=== PATIENT | male | born 1955 | race African-American/Black ===

== ENCOUNTER 2016-06-24 21:09 | Emergency (ER) | payer OTHER ==
[~2016-06-24] VITALS: Ht 188 cm; Wt 99.8 kg
[~2016-06-24 21:09] MED LIST: BENADRYL25 MG ORAL; HYDROCODON-ACE1 EA13; LISINOPRIL20 MG PO; METOPROLOL TART25 MG PO; MORPHINE SULFAT15 MG PO; NORCO 5-325 TA1 EAC1 ORAL; ONDANSETRON ODT4 MG ORAL; PREDNISONE20 MG ORAL; PREVACID30 MG ORAL; ZANTAC150 MG ORAL
[2016-06-24] MEDS ORDERED: Naloxone 1mg/ml 2ml IVP ONE (21:15)
[2016-06-24 21:58] LABS: ABG ALLEN TEST POSITIVE; ABG BASE EXCESS -7.8; ABG PCO2 31.1 mmHg (35.0-45.0)
[2016-06-24 22:01] LABS: BASOPHILS % (AUTO) 0.4 % (0.0-2.0); EOSINOPHILS % (AUTO) 0.2 % (0.0-3.0); LYMPHOCYTES % (AUTO) 15.1 % (20.0-45.0); MEAN CORPUSCULAR HEMOGLOBIN 33.4 PG (27.0-31.0); MEAN CORPUSCULAR HGB CONC 32.9 G/DL (32.0-36.0); MEAN CORPUSCULAR VOLUME 102 FL (80-99); MEAN PLATELET VOLUME 9.5 FL (6.5-10.1); MONOCYTES % (AUTO) 2.8 % (1.0-10.0); NEUTROPHILS % (AUTO) 81.5 % (45.0-75.0); PLATELET COUNT 155 K/UL (150-450); RED BLOOD COUNT 4.65 M/UL (4.70-6.10); RED CELL DISTRIBUTION WIDTH 11.8 % (11.6-14.8); WHITE BLOOD COUNT 10.4 K/UL (4.8-10.8)
[2016-06-24] MEDS ORDERED: Thiamine HCl 100 MG, Folic Acid 1 MG, Magnesium Sulfate 2,000 MG, Multivitamin - 12 Inj... IV SCH ×5 (22:30)
[2016-06-24] MEDS ORDERED: Morphine Sulfate 2mg/ml Inj IVP PRN (22:30)
[2016-06-24] MEDS ORDERED: chlordiazePOXIDE 25mg Cap ORAL PRN (22:30)
[2016-06-24] MEDS ORDERED: LORazepam Inj 2mg/ml 1ml IV PRN (22:30)
[2016-06-24] MEDS ORDERED: Miralax 17gm pkt ORAL PRN (22:30)
[2016-06-24] MEDS ORDERED: Zolpidem 5mg tab ORAL PRN (22:30)
[2016-06-24] MEDS ORDERED: Mylanta II UD 30ml ORAL PRN (22:30)
[2016-06-24 22:31] VITALS: BP 102/61
[2016-06-24 22:32] LABS: TROPONIN I < 0.30 ng/mL (<=0.30)
[2016-06-24 22:33] LABS: ACETAMINOPHEN < 10 ug/mL (10-30); ALANINE AMINOTRANSFERASE 74 U/L (3-41); ALBUMIN/GLOBULIN RATIO 1.4 (1.0-2.7); ALCOHOL 216 mg/dL; ANION GAP 23 (5-15); ASPARTATE AMINO TRANSFERASE 111 U/L (5-40); CALCIUM 9.1 mg/dL (8.6-10.2); CARBON DIOXIDE 20 mEQ/L (20-30); CHLORIDE 89 mEQ/L (98-107); CREATININE 2.2 mg/dL (0.7-1.2); GLOMERULAR FILTRATION RATE 37.2 mL/min (>60); HEMOLYSIS 36; POTASSIUM 3.2 mEQ/L (3.4-4.9); SODIUM 132 mEQ/L (135-145); TOTAL PROTEIN 7.1 g/dL (6.6-8.7)
[2016-06-24 22:34] LABS: AMMONIA 19 umol/L (16-60)
[2016-06-24 22:44] LABS: REFLEX LACTIC ACID YES OR NO YES
[2016-06-24 22:45] LABS: KETONES,URINE NEGATIVE (NEGATIVE); LEUKOCYTE ESTERASE ,URINE 1+ (NEGATIVE); NITRITE,URINE NEGATIVE (NEGATIVE); PH,URINE 5 (4.5-8.0); PROTEIN,URINE 3+ (NEGATIVE); UROBILINOGEN,URINE 4 MG/DL (0.0-1.0)
[2016-06-24 23:03] LABS: APPEARANCE,URINE CLEAR
[2016-06-24 23:04] LABS: BACTERIA,URINE FEW /HPF; RBC,URINE 0-2 /HPF (0 - 0); WBC,URINE 0-2 /HPF (0 - 0)
[2016-06-24 23:05] LABS: FINE GRANULAR CASTS,URINE 0-2 /LPF; HYALINE CASTS, URINE 0-2 /LPF
[2016-06-24 23:30] VITALS: BP 113/70
[2016-06-25 01:13] VITALS: BP 113/69
[2016-06-25 03:29] VITALS: BP 141/70
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
[2016-06-25 04:30] VITALS: BP 127/71
[2016-06-25 04:40] VITALS: BP 127/71
[2016-06-25] MEDS ORDERED: Metoprolol 25mg tab ORAL SCH (09:00)
[2016-06-25] MEDS ORDERED: Heparin 5000 units/ml inj SUBQ SCH (09:00)
[2016-06-25] MEDS ORDERED: Lisinopril 20mg tab ORAL SCH (09:00)
--- NOTE | 2016-06-25 13:54 | Diagnostic Imaging Report ---
Indications: Cough Technique: Portable AP chest Findings: Comparison: None Cardiac silhouette remains normal in size. Pulmonary vasculature remains within normal limits. Lungs and pleura remain clear. Mild calcification of the aortic arch, left chest wall pacemaker again noted.. IMPRESSION: No evidence of acute disease, unchanged Stable chronic changes as described
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
--- NOTE | 2016-06-25 20:13 | Cardiology Report ---
APPROVED REPORT EKG Measurement Heart [id number] [place] 200P70 [id number] Normal sinus rhythm T wave abnormality, consider inferolateral ischemia Prolonged QT Abnormal ECG
== END 2016-06-25 04:40 | disposition home or self-care (01) ==
LOC: EDBD 21:09 → EMR 21:23
DX: R41.82 Altered mental status, unspecified (principal); F10.129 Alcohol abuse with intoxication, unspecified; I10 Essential (primary) hypertension; E11.9 Type 2 diabetes mellitus without complications; E87.2 Acidosis; N28.9 Disorder of kidney and ureter, unspecified; G83.9 Paralytic syndrome, unspecified; G65.0 Sequelae of Guillain-Barre syndrome
CPT/HCPCS: 36415; 36600; 70450; 71010; 80053; 80300; 80329; 81003; 82140; 82550; 82803; 83605; 84484; 85025; 93005; 96361; 96374; 99284; J2310